=== PATIENT | male | born 1945 | race Caucasian/White ===

== ENCOUNTER 2019-03-04 11:45 | Day surgery (SDC) | payer MEDICARE ==
[~2019-03-04] VITALS: Ht 170.2 cm; Wt 85.8 kg
[2019-03-04 12:22] VITALS: BP 152/84
[2019-03-04] MEDS ORDERED: SODIUM CHLORIDE 0.9% 1,000 ML IV SCH (12:25)
[2019-03-04] MEDS ORDERED: CEFAZOLIN PMX 1GM/50ML 50 ML IV ONE (12:30)
[2019-03-04] MEDS ORDERED: TRAM50TA2 PO (12:33)
[2019-03-04] MEDS ORDERED: ASPI-650 PO (12:33)
[2019-03-04] MEDS ORDERED: PROP20TA PO (12:33)
[2019-03-04] MEDS ORDERED: GABA-827 PO (12:33)
[2019-03-04] MEDS ORDERED: LISI-170 PO (12:33)
[2019-03-04] MEDS ORDERED: FLUMAZENIL 0.1 MG/1 ML, 5ML ONE (13:43)
[2019-03-04] MEDS ORDERED: MIDAZOLAM 1 MG/ML, 5ML ONE (13:43)
[2019-03-04] MEDS ORDERED: FENTANYL PF 100 MCG/2ML ONE (13:43)
[2019-03-04] MEDS ORDERED: NALOXONE 1 MG/ML, 2ML ONE (13:44)
[2019-03-04] MEDS ORDERED: LIDOCAINE-MPF 1%, 5ML ONE (13:45)
[2019-03-04] MEDS ORDERED: LIDOCAINE 1%, 20ML ONE (14:32)
[2019-03-04] MEDS ORDERED: OXYcodone 5 MG/5 ML ORAL.SOL UDC ONE (15:27)
[2019-03-04] MEDS ORDERED: VISIPAQUE 270 MG/ML, 50ML BOTTLE ONE (15:29)
[2019-03-04] MEDS ORDERED: OXYcodone 5 MG/5 ML ORAL.SOL UDC PO PRN (16:00)
== END 2019-03-04 16:50 | disposition home or self-care (01) ==
LOC: OUT 11:45 → EDSTATUS 13:30 → OUT 16:50
PROVIDERS: ATTEND Student in an Organized Health Care Education/Training Program
DX: N35.919 Unspecified urethral stricture, male, unspecified site (principal); R33.9 Retention of urine, unspecified; I10 Essential (primary) hypertension; Z79.891 Long term (current) use of opiate analgesic; Z79.899 Other long term (current) drug therapy; Z88.8 Allergy status to other drugs, medicaments and biological substances
CPT/HCPCS: 51102; 75989; 99156; 99157; C1725; C1769; J0690; J2250; J3010; Q9966; 51703; 76937; J2310